=== PATIENT | female | born 1950 | race Caucasian/White ===

== ENCOUNTER → 2017-08-26 | Outpatient (CLI) | payer MEDICARE, OTHER ==
--- NOTE | 2017-08-26 13:16 | CONS ---
CONSULTATION DATE OF SERVICE: 08/26/2017. This 66-year-old lady has been re-evaluated in sleep center for obstructive sleep apnea- hypopnea syndrome. HISTORY OF PRESENT ILLNESS/SLEEP-WAKE EVALUATION: The patient has long history of obstructive sleep apnea-hypopnea syndrome since about 2009. Presently, she is on treatment with BiPAP and last titration done about 1-1/2 years ago in another institution. Patient has difficulties with the machine related to the pressure where she feels the pressure is too high. She also has some problem with the masks. She sometimes snore with the machine, wakes up from sleep 3 times with episodes of nocturia. In the morning she wakes up tired, has problems with memory, concentration. [place] Sleepiness Scale is 10. PAST MEDICAL HISTORY: Positive for hypertension, atrial fibrillation, acid reflux, asthma, recently was diagnosed with myasthenia gravis, history of Sjogren syndrome, history of fibromyalgia and also history of glaucoma. PAST SURGICAL HISTORY: Cardiac ablation, D&C, tonsillectomy and adenoidectomy in childhood, bariatric surgery in 2007, ear surgery. MEDICATIONS: Lisinopril, metformin, Cymbalta, Adderall, gabapentin, trazodone, omeprazole, Singulair, Flovent, metoprolol, Timoptic eye drops, latanoprost. SOCIAL HISTORY: Negative for smoking. Alcohol consumption very rarely. FAMILY HISTORY: Hypertension, angina, heart problems, hyperlipidemia, arthritis, asthma, sinus headaches, emphysema, bronchitis, snoring, tuberculosis, cancer, thyroid problems, diabetes, acid reflux. REVIEW OF SYMPTOMS: Awakenings from sleep, sleepiness during the day, tiredness, muscle weakness during. No fevers. No double vision. No recent chest pain. No shortness of breath. No abdominal pain. No bleeding episodes. No blood in urine. No seizure episodes. PHYSICAL EXAM: During physical exam, a lady without distress. VITAL SIGNS: BP 130/70, HR 76, RR 16, height 5 feet 4-1/2 inches, weight 242, BMI 40.8, temperature 97.8, oxygen saturation in room air 98%. HEENT: PERRLA, EOMI. Oropharynx short distance between soft palate and posterior pharyngeal wall. Some restriction of nasal breathing. Wide neck 16 inches in circumference. NECK: Supple, no JVD. Thyroid is not palpable. LUNGS: Clear to percussion and to auscultation. Good air exchange. No wheezing or rhonchi. HEART: S1, S2 regular. No murmurs, gallops, or rubs. ABDOMEN: Obese. EXTREMITIES: No clubbing or cyanosis. MANAGER: Awake, alert, and oriented X3. Cranial nerves 2 to 7 intact. There is no fasciculation or atrophy. noted. No focal deficits observed. IMPRESSION: 1. Obstructive sleep apnea-hypopnea syndrome for about 18 years, presently on treatment with BiPAP, but wakes up from sleep, snores and feels sleepy during the day. 2. Obesity. 3. Diabetes mellitus. 4. Hypertension. 5. History of atrial fibrillation. 6. Asthma. 7. Acid reflux. 8. Status post cardiac ablation. 9. History of Sjogren syndrome. 10.History of fibromyalgia. 11.Recently diagnosed with myasthenia gravis. 12.Status post D&C. 13.Status post tonsillectomy and adenoidectomy. 14.Glaucoma. PLAN: 1. BiPAP titration for re-evaluation of effective BiPAP pressure at the present time and to find a comfortable mask for the patient. 2. Aggressive losing weight. 3. Sleep hygiene with regular time in bed for at least 8 hours. 4. No driving if feeling any sleepiness. Thank you very much for allowing me to participate in management of your patient. Sincerely, Mukund Washburn MD, PhD, FAASM Diplomat of [employer] Board of [employer] Medicine Christian Science Practitioner of [facility] [place] MMODL / IJN: [id number] /
== END | disposition home or self-care (01) ==
LOC: SLEEP 11:31
PROVIDERS: ATTEND Internal Medicine
DX: G47.33 Obstructive sleep apnea (adult) (pediatric) (principal); E66.9 Obesity, unspecified; E11.9 Type 2 diabetes mellitus without complications; I10 Essential (primary) hypertension; J45.909 Unspecified asthma, uncomplicated; K21.9 Gastro-esophageal reflux disease without esophagitis; G70.00 Myasthenia gravis without (acute) exacerbation; H40.9 Unspecified glaucoma; Z98.84 Bariatric surgery status; Z98.890 Other specified postprocedural states; Z79.899 Other long term (current) drug therapy
CPT/HCPCS: 99201

== ENCOUNTER → 2017-11-25 | Outpatient (CLI) | payer MEDICARE ==
--- NOTE | 2017-11-25 17:54 | PN ---
PROGRESS NOTE DATE OF SERVICE: 11/25/2017 This patient is a 67-year-old lady who has been followed in the sleep center for treatment of obstructive sleep apnea-hypopnea syndrome. Recently the patient had CPAP titration and I explained the results of the test to the patient in detail. Test showed that on the pressure of 12/8, apnea-hypopnea index was 0.9. At the pressure of 13/9 it was zero, and at the pressure of 11/7 it was 8.3, but the patient was at that pressure for a short period of time. At the pressure of 10/6, AHI was 1.7. The patient is using equipment every night for the whole night but experiencing dryness in her mouth when she is using her equipment. But that dryness, patient reports, she has had for many years. The patient still feels sleepy during the day while using her machine, although [place] Sleepiness Scale is in normal range at 6. I checked the BiPAP unit. At pressure 13/9 cm of water, usage is 15/30 nights for more than 4 hours. Average usage is 6.3 hours. Leak is only 2 L/minute. Apnea-hypopnea index for the last month according to the machine is 6.1, total apnea index 5.1, central apnea index 0.9. MEDICATIONS: 1. Lisinopril. 2. Metformin. 3. Cymbalta. 4. Adderall. 5. Gabapentin. 6. Trazodone. 7. Omeprazole. 8. Singulair. 9. Flovent. 10.Metoprolol. 11.Timoptic eye drops. 12.Latanoprost. PHYSICAL EXAMINATION: VITAL SIGNS: BP 141/80, HR 74, RR 16, weight 241, temperature 97.9, oxygen saturation at room air 98%. HEENT: PERRLA, EOMI. Evaluation of oropharynx showed tongue protrudes midline; low position of soft palate. NECK: Supple. No JVD. Thyroid is not palpable. LUNGS: Clear to percussion and to auscultation. Good air exchange. No wheezing or rhonchi. HEART: S1, S2 regular. No murmurs, gallops or rubs. ABDOMEN: Obese. EXTREMITIES : No clubbing or cyanosis. Some weakness of the legs. SEAMLESS TUBE DRAWER: Awake, alert, and oriented X3. Cranial nerves 2 to 7 intact. There is no fasciculation or atrophy. noted. No focal deficits observed. IMPRESSION: 1. Obstructive sleep apnea-hypopnea syndrome; breathing practically normalized on BiPAP at the pressure 13/9 cm of water, but patient still sometimes has episodes of sleepiness and dryness in the mouth. 2. Severe periodic limb movements have been documented during titration. Patient is on treatment with gabapentin at present. 3. Obesity. 4. Asthma. 5. History of atrial fibrillation. 6. Hypertension. 7. Diabetes mellitus. 8. Acid reflux. 9. Status post cardiac ablation. 10.History of Sjogren syndrome. 11.History of fibromyalgia. 12.Myasthenia gravis. 13.Status post dilation and curettage. 14.Status post tonsillectomy and adenoidectomy. 15.Glaucoma. PLAN: 1. I changed the BiPAP to automatic regimen with continued pressure support of 4 and changed minimum expiratory pressure to 7 and maximal inspiratory pressure to 15. 2. Continue to use BiPAP equipment every night. 3. Losing weight. 4. Sleep hygiene with regular time in bed for at least 8 hours. 5. No driving if feeling any sleepiness. Follow-up visit in 3 months. Thank you very much for allowing me to participate in the management of your patient. Sincerely, Mukund Washburn MD, PhD, FAASM Diplomat of [employer] [employer] Board of Internal Medicine Gas Pit Worker of [facility] [place] SIA / TOLU: [id number] /
== END | disposition home or self-care (01) ==
LOC: SLEEP 16:28
PROVIDERS: ATTEND Internal Medicine
DX: G47.33 Obstructive sleep apnea (adult) (pediatric) (principal); E66.9 Obesity, unspecified; J45.909 Unspecified asthma, uncomplicated; I10 Essential (primary) hypertension; E11.9 Type 2 diabetes mellitus without complications; K21.9 Gastro-esophageal reflux disease without esophagitis; Z98.890 Other specified postprocedural states; Z86.2 Personal history of diseases of the blood and blood-forming organs and certain disorders involving the immune mechanism; Z87.39 Personal history of other diseases of the musculoskeletal system and connective tissue; G70.00 Myasthenia gravis without (acute) exacerbation; H40.9 Unspecified glaucoma; Z99.89 Dependence on other enabling machines and devices; Z79.899 Other long term (current) drug therapy; Z79.84 Long term (current) use of oral hypoglycemic drugs; Z86.79 Personal history of other diseases of the circulatory system

== ENCOUNTER → 2018-08-03 | Outpatient (CLI) | payer MEDICARE, OTHER ==
--- NOTE | 2018-08-03 16:41 | PN ---
PROGRESS NOTE DATE OF SERVICE: 08/03/2018 67-year-old lady has been followed in the Sleep Center for treatment of obstructive sleep apnea-hypopnea syndrome. Last time I saw patient about 8 months ago, the patient continued to use her BiPAP equipment every night for the whole night. I did change her pressure up during the last visit and for the first seven months patient was fine, but for the last month, she feels that she has more awakenings during the sleep than before. She feels that maybe pressure should be increased more. [place] Sleepiness Scale today is 8. I checked patient's CPAP unit. BiPAP machine with a minimal expiratory pressure is 7 and maximal inspiratory pressure 15 with a pressure support of 4, most of the time pressure in the range 14.5/10.5. Usage is now 26 out of 30 nights more than 4 hours, average usage is 7.7 hours, which is good compliance. Leak only 5 L/minutes which is perfect. Apnea-hypopnea index for the last month 4.6, and for the last night 3.2. For the last 6 months slightly better 3.8, compared with 1 months. Patient increased her weight around 10 pounds since previous visit. MEDICATIONS: Mestinon, lisinopril, metformin, Cymbalta, gabapentin, trazodone, omeprazole, Singulair, Flovent, metoprolol, Timoptic eye drops, latanoprost. PHYSICAL EXAM: Patient in no distress. BP 157/88, HR 65, RR 17, height 64, weight 251.8, body mass index 43, temperature 97.0, oxygen saturation at room air 99%. Oropharynx: Low position of soft palate. ABDOMEN: Obese. NECK: Supple, no JVD. Thyroid is not palpable. LUNGS: Clear to percussion and to auscultation. Good air exchange. No wheezing or rhonchi. HEART S1, S2 regular. No murmurs, gallops, or rubs. ABDOMEN: Obese. Soft and nontender. Bowel sounds are present. No organomegaly appreciated. EXTREMITIES No clubbing or cyanosis. TIRE INSPECTOR Awake, alert, and oriented X3. Cranial nerves 2 to 7 intact. There is no fasciculation or atrophy. noted. No focal deficits observed. IMPRESSION: 1. Obstructive sleep apnea-hypopnea syndrome. Good compliance with treatment. Benefitting from treatment. 2. Obesity patient increased weight on 10 pounds. 3. Asthma. 4. History of atrial fibrillation. 5. Hypertension. 6. Diabetes mellitus. 7. Acid reflux. 8. Status post cardiac ablation. 9. History of Sjogren's syndrome. 10.History of fibromyalgia. 11.Myasthenia gravis. 12.Status post D and C. 13.Status post tonsillectomy and adenoidectomy. 14.Glaucoma. PLAN: 1. I increased range home of the pressure to the maximal inspiratory pressure of 17 with a pressure support of 4 and minimal respiratory pressure working the same as 7. 2. Losing weight. 3. Sleep hygiene with regular time in bed for at least 8 hours. 4. No driving if feeling sleepiness. 5. Prescription for all necessary BiPAP supplies including mask, tube, filters. Thank you very much for allowing me to participate in management of your patient. MMRONL / IJN: [id number] /
== END | disposition home or self-care (01) ==
LOC: SLEEP 13:06
PROVIDERS: ATTEND Internal Medicine
DX: G47.33 Obstructive sleep apnea (adult) (pediatric) (principal); E66.9 Obesity, unspecified; J45.909 Unspecified asthma, uncomplicated; I10 Essential (primary) hypertension; E11.9 Type 2 diabetes mellitus without complications; K21.9 Gastro-esophageal reflux disease without esophagitis; G70.00 Myasthenia gravis without (acute) exacerbation; H40.9 Unspecified glaucoma; Z68.41 Body mass index [BMI] 40.0-44.9, adult; Z86.79 Personal history of other diseases of the circulatory system; Z87.39 Personal history of other diseases of the musculoskeletal system and connective tissue; Z86.2 Personal history of diseases of the blood and blood-forming organs and certain disorders involving the immune mechanism; Z79.899 Other long term (current) drug therapy; Z99.89 Dependence on other enabling machines and devices; Z90.89 Acquired absence of other organs; Z98.890 Other specified postprocedural states

== ENCOUNTER → 2019-01-26 | Outpatient (CLI) | payer MEDICARE, OTHER ==
--- NOTE | 2019-01-26 14:28 | PN ---
PROGRESS NOTE DATE OF SERVICE: 01/26/2019 A 68-year-old lady who has been followed in the Sleep Center for treatment of obstructive sleep apnea-hypopnea syndrome. Patient continued to use her BiPAP equipment every night without significant problems. Sometimes she feels that pressure is not enough. [place] Sleepiness Scale is 9. I checked her BiPAP unit, maximal respiratory pressure 17, minimal expiratory pressure 7.0, pressure support is 4. Usage is 25/30 nights and 21/30 nights more than 4 hours, average 5.8 hours, average pressure 14.2/10.2. Leak is 7 L/minute which is normal range. Apnea-hypopnea index 4.5, which is normal. MEDICATIONS: Mestinon, lisinopril, metformin, Cymbalta, gabapentin, trazodone, omeprazole, Singulair, Flovent, metoprolol, Timoptic eyedrops, latanoprost. PHYSICAL EXAM: Patient in no distress. BP 123/75, HR 64, RR 16, height 5 foot 4 inches, weight 232 pounds. Body mass index 39.8, temperature 97.6, O2 saturation at room air 98%. OROPHARYNX: Low position of soft palate. ABDOMEN: Obese. Neck Supple, no JVD. Thyroid is not palpable. LUNGS Clear to percussion and to auscultation. Good air exchange. No wheezing or rhonchi. HEART S1, S2 regular. No murmurs, gallops, or rubs. EXTREMITIES No clubbing or cyanosis. DISK RECORDIST Awake, alert, and oriented X3. Cranial nerves 2 to 7 intact. There is no fasciculation or atrophy. noted. No focal deficits observed. IMPRESSION: 1. Obstructive sleep apnea-hypopnea syndrome. Patient demonstrated good compliance with treatment, benefitting from treatment. 2. Obesity. 3. Asthma. 4. History of atrial fibrillation. 5. Hypertension. 6. Diabetes mellitus. 7. Acid reflux. 8. Status post cardiac ablation. 9. History of Sjogren syndrome. 10.History of fibromyalgia. 11.Myasthenia gravis. 12.Status post D and C. 13.Status post tonsillectomy and adenoidectomy. 14.History of glaucoma. PLAN: 1. Patient will continue to use BiPAP equipment every night. 2. Continue losing weight. Patient lost 12 pounds since previous visit. 3. Sleep hygiene with regular time in bed for at least 8 hours. 4. No driving if feeling any sleepiness. Thank you very much for allowing me to participate in the management of your patient. Sincerely, Mukund Washburn MD, PhD, FAASM Diplomat of [place] [employer] Specialties [employer] Board of Internal Medicine Retail Mortgage Banker of [facility] [place] MMODL / HEIDIN: [id number] /
== END | disposition home or self-care (01) ==
LOC: SLEEP 13:09
PROVIDERS: ATTEND Internal Medicine
DX: G47.33 Obstructive sleep apnea (adult) (pediatric) (principal); E66.9 Obesity, unspecified; J45.909 Unspecified asthma, uncomplicated; I48.91 Unspecified atrial fibrillation; I10 Essential (primary) hypertension; E11.9 Type 2 diabetes mellitus without complications; K21.9 Gastro-esophageal reflux disease without esophagitis; M79.7 Fibromyalgia; G70.00 Myasthenia gravis without (acute) exacerbation; M35.00 Sjogren syndrome, unspecified; H40.9 Unspecified glaucoma; Z90.89 Acquired absence of other organs; Z98.890 Other specified postprocedural states; Z79.84 Long term (current) use of oral hypoglycemic drugs; Z79.899 Other long term (current) drug therapy; Z79.52 Long term (current) use of systemic steroids; Z99.89 Dependence on other enabling machines and devices; Z68.39 Body mass index [BMI] 39.0-39.9, adult

== ENCOUNTER 2020-02-20 06:33 | Day surgery (SDC) | payer MEDICARE, OTHER ==
[2020-02-14 15:34] VITALS: BMI 40.0
[~2020-02-20 06:33] MED LIST: SODIUM CHLORIDE 0.9% 1,000 ML IV SCH
[2020-02-20] MEDS ORDERED: CLINDAMYCIN 900 MG in DEXTROSE 5% IN WATER 50 ML IVPB ONE ×2 (07:00)
[2020-02-20 07:03] VITALS: RESP 16; TEMP 97.7
[2020-02-20] MEDS ORDERED: LIDOCAINE 1% INJ 10MG/ML (20 ML MDV) ONE (07:20)
[2020-02-20 08:01] VITALS: BP 142/77; PULSE 63
[2020-02-20] MEDS ORDERED: LIDOCAINE 1% INJ 10MG/ML (20 ML MDV) SQ ONE (08:01)
--- NOTE | 2020-02-20 08:26 | P.PCN ---
Preoperative Diagnosis: Loop monitor implant Primary physicians: Winston Dowling Battery Stacker: Dr. Arambula Indication: Recurrent palpitations with presyncope Patient was brought to the EP lab in a fasting state. Written informed consent was obtained prior to the procedure. The left pectoral area was prepped and draped per protocol. Intravenous antibiotic was administered preoperatively. A subcutaneous Loop monitor was implanted successfully and the wound was closed per protocol. The device was programmed to detect significant minal- arrhythmic and tachy-arrhythmic events, per protocol. Device and programming details: Syncope and palpitation protocol Patient underwent EP procedure under conscious sedation/moderate sedation, monitoring of the level of consciousness and physiologic parameters including but not limited to vital signs and oxygenation. Patient tolerated the procedure well without any acute complications. Start time: 8 AM Stop time: 811am
--- NOTE | 2020-02-20 11:03 | P.PRLE ---
RE: Xochitl Callahan Dear Dr. 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 Arambula There are no changes in her medications for now Thank you for entrusting me with the care of the patient Warm regards Sincerely Alexandru Wallace
== END 2020-02-20 08:47 | disposition home or self-care (01) ==
LOC: CATHEP 06:33
PROVIDERS: ATTEND Internal Medicine Clinical Cardiac Electrophysiology
DX: R00.2 Palpitations (principal); R55 Syncope and collapse; R42 Dizziness and giddiness; I49.9 Cardiac arrhythmia, unspecified; G47.33 Obstructive sleep apnea (adult) (pediatric); E11.9 Type 2 diabetes mellitus without complications; I10 Essential (primary) hypertension; I49.3 Ventricular premature depolarization; I47.1 Supraventricular tachycardia; Z98.890 Other specified postprocedural states; Z99.89 Dependence on other enabling machines and devices; Z79.899 Other long term (current) drug therapy; Z79.84 Long term (current) use of oral hypoglycemic drugs; Z79.51 Long term (current) use of inhaled steroids; Z91.09 Other allergy status, other than to drugs and biological substances; Z88.5 Allergy status to narcotic agent; Z88.0 Allergy status to penicillin; Z82.49 Family history of ischemic heart disease and other diseases of the circulatory system
CPT/HCPCS: 33285; C1764

== ENCOUNTER → 2020-10-09 | Outpatient (CLI) | payer MEDICARE ==
--- NOTE | 2020-10-09 21:52 | SFUN ---
SLEEP CENTER FOLLOW UP NOTE DATE OF SERVICE: 10/09/2020 This patient is a 69-year-old lady who has been followed in Sleep Center for treatment of obstructive sleep apnea-hypopnea syndrome. The patient continues to use CPAP equipment every night. Sometimes when she wakes up in the second part of the night after 5 or 6 hours of sleep, she feels that the pressure is high and she cannot start to use her machine again after awakenings and going to the restroom. [place] Sleepiness Scale today is 11. I checked her BiPAP unit. Minimal expiratory pressure is 7 and maximal inspiratory pressure is 17 with a pressure support of 4. The patient is using equipment 20/30 nights for more than 4 hours with average usage 6.5 hours per night. Leak is 16 L/minute, which is borderline. Apnea-hypopnea index is 3.2, which is totally normal. RAMP is 30 minutes, starting at 4 cm of water. MEDICATIONS: 1. Metoprolol 25 mg twice a day. 2. Ritalin 20 mg once a day. 3. Hydrochlorothiazide 25 mg twice a day. 4. Lisinopril 30 mg once a day. 5. Mestinon 60 mg twice a day. 6. Gabapentin 300 mg twice a day. 7. Amlodipine once a day. 8. Omeprazole 20 mg twice a day. 9. Trazodone 50 mg at bedtime. 10.Timoptic eyedrops. 11.Flovent. PHYSICAL EXAMINATION: GENERAL: A pleasant patient in no distress. VITAL SIGNS: BP 158/91, HR 65, RR 18, height 5 feet 5 inches, weight 254.6, temperature 96.3, oxygen saturation at room air 98%. HEENT: PERRLA, EOMI. Evaluation of oropharynx showed tongue protrudes midline. Low position of soft palate. NECK: Supple. No JVD. Thyroid is not palpable. LUNGS: Clear to percussion and to auscultation. Good air exchange. No wheezing or rhonchi. HEART: S1, S2 irregular. No murmurs, gallops or rubs. ABDOMEN: Obese. EXTREMITIES: No clubbing or cyanosis. RADIO STATION ENGINEER: Awake, alert, and oriented X3. Cranial nerves 2 to 7 intact. There is no fasciculation or atrophy. noted. No focal deficits observed. IMPRESSION: 1. Obstructive sleep apnea-hypopnea syndrome. Patient demonstrated good compliance with treatment, benefitting from treatment. 2. Obesity. 3. Asthma. 4. Atrial fibrillation. 5. Hypertension. 6. Diabetes mellitus. 7. Acid reflux. 8. Status post cardiac ablation. 9. History of Sjogren syndrome. 10.History of fibromyalgia. 11.Myasthenia gravis. 12.Status post dilatation and curettage. 13.Status post tonsillectomy and adenoidectomy. 14.History of glaucoma. PLAN: 1. Patient will continue to use PAP equipment every night for the whole night. 2. Sleep hygiene with regular time in bed for at least 7-1/2 to 8 hours. 3. Precautions related to driving. No driving if feeling sleepiness. 4. I will maintain all necessary prescription for PAP supplies including mask, tube, filters. 5. Watching weight. 6. No driving if feeling sleepiness. 7. Follow-up visit in 6 months or earlier if patient has any problems. 8. I changed minimal expiratory pressure to 5. At the end of the night, when the patient wakes up and has difficulties starting the machine again, she should restart machine, and RAMP will restart, and she will not have difficulties using the machine again. I explained this in detail to the patient. Thank you very much for allowing me to participate in the management of your patient. Sincerely, Mukund Washburn MD, PhD, FAASM Diplomat of [place] [employer] Specialties [place] Board of Internal Medicine Insurance Marketing Specialist of [facility] [place] MMODL / TOLU: [id number] /
== END | disposition home or self-care (01) ==
LOC: SLEEP 16:00
PROVIDERS: ATTEND Internal Medicine
DX: G47.33 Obstructive sleep apnea (adult) (pediatric) (principal); E66.9 Obesity, unspecified; J45.909 Unspecified asthma, uncomplicated; I48.91 Unspecified atrial fibrillation; I10 Essential (primary) hypertension; G70.00 Myasthenia gravis without (acute) exacerbation; E11.9 Type 2 diabetes mellitus without complications; K21.9 Gastro-esophageal reflux disease without esophagitis; Z87.39 Personal history of other diseases of the musculoskeletal system and connective tissue; Z98.890 Other specified postprocedural states; Z99.89 Dependence on other enabling machines and devices; Z79.891 Long term (current) use of opiate analgesic; Z79.899 Other long term (current) drug therapy; Z86.69 Personal history of other diseases of the nervous system and sense organs

== ENCOUNTER → 2021-11-26 | Outpatient (CLI) | payer MEDICARE ==
--- NOTE | 2021-11-26 21:09 | SFUN ---
SLEEP CENTER FOLLOW UP NOTE DATE OF SERVICE: 11/26/2021 71-year-old lady has been followed in Sleep Center for treatment of obstructive sleep apnea-hypopnea syndrome. The patient continues to use her BiPAP equipment every night and still has sleepiness during the day. [place] Sleepiness Scale today increased to 13, and this is with the usage of Provigil 200 mg in the morning. I checked her BiPAP unit. Maximal inspiratory pressure is 17, minimal expiratory respiratory pressure 5, pressure support 4, average pressure 14.6 or 10.7. Usage is 23/30 nights and 20/30 nights more than 4 hours, average 6.4 hours per night. Leak 17 L/minute. Apnea-hypopnea index is 6.3, which is slightly above borderline. MEDICATIONS: Cymbalta 30 mg once a day and 20 mg once a day, montelukast 10 mg once a day, lisinopril 30 mg once a day, hydrochlorothiazide 25 mg once a day, metoprolol 25 mg twice a day, Provigil 200 mg once a day in the morning, Myrbetriq 50 mg once a day, timolol eye drops twice a day, latanoprost eye drops, Ozempic weekly, omeprazole 20 mg once a day. PHYSICAL EXAMINATION: GENERAL: Patient in no distress. BP 133/81, HR 88, RR 16, estimated weight 220. Patient did not want to check her weight and this is 34 pounds less than she had during the previous visit. Temperature 97.0, oxygen saturation at room air 95%. Oropharynx showed low position of soft palate. NECK: Supple, no JVD. Thyroid is not palpable. LUNGS: Clear to percussion and to auscultation. Good air exchange. No wheezing or rhonchi. HEART: S1, S2 regular. No murmurs, gallops, or rubs. ABDOMEN: Obese. Soft and nontender. Bowel sounds are present. No organomegaly appreciated. EXTREMITIES: No clubbing or cyanosis. RHEOSTAT ASSEMBLER: Awake, alert, and oriented X3. Cranial nerves 2 to 7 intact. There is no fasciculation or atrophy. noted. No focal deficits observed. IMPRESSION: 1. Obstructive sleep apnea-hypopnea syndrome. Patient demonstrated acceptable compliance with treatment benefitting from treatment. Very minimal increasing apnea-hypopnea index to 6.3 at the present time. 2. Sleepiness during the day. [place] Sleepiness Scale increased to 13 and that with usage of Provigil 200 mg in the morning. 3. Obesity. Patient lost about 30 pounds since previous visit. 4. Asthma. 5. History of atrial fibrillation. 6. Hypertension. 7. Diabetes mellitus. 8. Acid reflux. 9. Status post cardiac ablation. 10.History of Sjogren syndrome. 11.History of fibromyalgia. 12.Myasthenia gravis. 13.Status post D and C. 14.Status post tonsillectomy and adenoidectomy. 15.History of glaucoma. PLAN: 1. I increased maximal inspiratory pressure to 18 cm of water. 2. I increased humidity to 6. The patient feels dryness in the mouth. 3. We will schedule multiple sleep latency test for objective evaluation of patient's symptoms of excessive daytime sleepiness. The patient should not take Provigil at the time before the test and the day of the test and the patient will be on treatment with CPAP all night and including night before the MSLT. 4. Watching and losing weight. 5. No driving if feeling sleepiness. 6. Prescription for all necessary CPAP supplies have been signed. 7. I will see patient for follow-up visit after MSLT will be done to discuss results of the test and following plan. Thank you very much for allowing me to participate in management of your patient. Sincerely, Mukund Washburn MD, PhD, FAASM Diplomat of [place] [employer] Sleep Medicine Board of [place] [employer] of Internal Medicine Intern Retail of [facility] [place] MMODL / IJN: [id number] /
== END ==
LOC: SLEEP 15:22
PROVIDERS: ATTEND Internal Medicine
DX: G47.33 Obstructive sleep apnea (adult) (pediatric) (principal); E66.9 Obesity, unspecified; J45.909 Unspecified asthma, uncomplicated; I48.91 Unspecified atrial fibrillation; I10 Essential (primary) hypertension; E11.9 Type 2 diabetes mellitus without complications; K21.9 Gastro-esophageal reflux disease without esophagitis; Z98.890 Other specified postprocedural states; Z87.39 Personal history of other diseases of the musculoskeletal system and connective tissue; G70.00 Myasthenia gravis without (acute) exacerbation; Z87.59 Personal history of other complications of pregnancy, childbirth and the puerperium; Z90.09 Acquired absence of other part of head and neck; Z86.69 Personal history of other diseases of the nervous system and sense organs; Z99.89 Dependence on other enabling machines and devices; Z86.2 Personal history of diseases of the blood and blood-forming organs and certain disorders involving the immune mechanism; Z88.0 Allergy status to penicillin; Z88.5 Allergy status to narcotic agent; Z87.891 Personal history of nicotine dependence

== ENCOUNTER → 2022-09-02 | Outpatient (CLI) | payer MEDICARE ==
--- NOTE | 2022-09-02 12:32 | P.PN ---
Subjective DATE: 09/02/2022 FOLLOW UP VISIT. Patient with obstructive sleep apnea hypopnea syndrome and significant excessive daytime sleepiness return to sleep center for follow-up visit to discuss results of recent CPAP titration test with following multiple sleep latency test and plan for the treatment. I discuss results of sleep studies with patient in details. She respiration was on full control with BiPAP pressure 11/7 cm of water during the test. A multiple sleep latency test confirmed sleepiness. Mean sleep latency was short 6.3 minutes. One sleep onset REM have been documented. Patient is on Ritalin 20 mg twice a day for ADHD and sleepiness. Patient is using BPAP equipment every night for the whole night, getting PAP supplies in time. The patient does not have significant problems with the mask, BPAP unit and humidification. [place] sleepiness scale is increased to 13. I checked information from BPAP unit. BPAP unit pressure maximal inspiratory pressure 18, minimal expiratory pressure 5, pressure-support 4, average pressure 13.7/9.7 cm H2O. Usage is 40 % for more then 4 hours. Leak is 5 l/m, which is in acceptable range. Apnea Hypopnea Index is 4.3, which is normal. MEDICATIONS:1 . Ritalin 20 mg twice a day 2. Cymbalta 3. Hydrochlorothiazide 4. Metoprolol 5. Lisinopril 6. Omeprazole 7. timolol and latanoprost eyedrops 8. Ozempic During physical exam: GENERAL: A pleasant patient without any distress. VITAL SIGNS: BP 138/86, HR 75, RR 16, weight estimated 220, patient refused to measure weight, temperature 97.0, oxygen saturation at room air 98 % . HEENT: PERRLA, EOMI.low position of soft palate, Mallapati 3 . NECK: Supple. No JVD. LUNGS: Clear to percussion and to auscultation. Good air exchange. No wheezing or rhonchi. HEART: S1, S2 regular. ABDOMEN: Soft and nontender.[] EXTREMITIES: No clubbing or cyanosis. GUEST SPECIALIST: Awake, alert, and oriented x3. No focal deficit. Impressions: 1. Obstructive sleep apnea-hypopnea syndrome. Patient demonstrated normal respiration on BiPAP. 2. Significant excessive daytime sleepiness have been confirmed by multiple sleep latency test. Mean sleep latency was short 6.3 minutes, one sleep onset REM periods have been documented. Differential diagnosis include narcolepsy2 and idiopathic hypersomnia. 3. History of ADHD. 4. Obesity. 5. Asthma. 6. Hypertension. 7. History of arterial fibrillation, status post cardiac ablation. 8. Diabetes mellitus. 9. Acid reflux. 10. History of Sjogren syndrome. 11. Myastenia gravis. 12. History of glaucoma. Plan: 1. Continue using BPAP equipment every night for the whole night, patient promised to follow recommendations. 2. Presently patient is on treatment with Ritalin 20 mg twice a day for ADHD, which could be sufficient for treatment of possible narcolepsy. If necessary we'll consider to adjust the dose, change medication, or add additional medication like modafinil. 3. PAP unit should stay lower then position of the head. 4. Advised patient to remove all remaining water from humidifier canister daily and make it dry after each usage. Refill canister with fresh distilled water before each usage. 5. Sleep hygiene with regular time in bed for at least 8 hours. 6. Precautions related to driving. No driving if feel any sleepiness. 7. I will maintain prescription for PAP supplies including mask, tube, filters. 8. Follow up visit in 6 months or earlier if patient has any problems. 9. Watching and losing weight. Thank you very much for allowing me to participate in the management of your patient. Mukund Washburn MD, PhD, FAASM. Diplomat of [place] [employer], Sleep Medicine Board by [employer] [employer] Leather Colorer of [facility] [place]
== END ==
LOC: SLEEP 11:36
PROVIDERS: ATTEND Internal Medicine
DX: G47.33 Obstructive sleep apnea (adult) (pediatric) (principal); Z99.89 Dependence on other enabling machines and devices; E66.9 Obesity, unspecified; J45.909 Unspecified asthma, uncomplicated; I10 Essential (primary) hypertension; Z86.59 Personal history of other mental and behavioral disorders; K21.9 Gastro-esophageal reflux disease without esophagitis; E11.9 Type 2 diabetes mellitus without complications; I97.190 Other postprocedural cardiac functional disturbances following cardiac surgery; M35.00 Sjogren syndrome, unspecified; G70.00 Myasthenia gravis without (acute) exacerbation; Z86.69 Personal history of other diseases of the nervous system and sense organs; Z88.0 Allergy status to penicillin; Z88.5 Allergy status to narcotic agent; Z87.891 Personal history of nicotine dependence
CPT/HCPCS: 99212

== ENCOUNTER → 2023-03-18 | Outpatient (CLI) | payer MEDICARE ==
--- NOTE | 2023-03-18 13:59 | P.PN ---
Subjective DATE: 03/18/2023 FOLLOW UP VISIT. Patient with obstructive sleep apnea hypopnea syndrome and possible narcolepsy return to sleep center for follow-up visit. Information from previous visit have been reviewed. Patient is using PAP equipment every night for the whole night, getting PAP supplies in time. Sometimes wakes up from sleep while using sure BiPAP equipment. The patient does not have significant problems with the mask, PAP unit and humidification. [place] sleepiness scale is 12. I checked information from BPAP unit. BPAP unit pressure maximal inspiratory pressure 18, minimal expiratory pressure 5, average 14.4 over 10.4 cm H2O. Usage is 80 % for more then 4 hours, average 7.4 hours per night. Leak is 12 l/m, which is in acceptable range. Apnea Hypopnea Index is 5.3, which is borderline and includes 2.5 per hour central events. I reviewed results of sleep study in July 2022. During this test with the constant BiPAP pressure 11/7 apnea-hypopnea index was 0. MEDICATIONS:1. Cymbalta 20 mg once a day 2. Lisinopril 2.5 mg once a day 3. Cymbalta 20 mg once a day 4. Ritalin 20 mg once a day 5. Latanoprost eyedrops 6. Metoprolol During physical exam: GENERAL: A pleasant patient without any distress. VITAL SIGNS: BP 110/77, HR 82, RR 16, weight 207, temperature 97.6, oxygen saturation at room air 100 % . HEENT: PERRLA, EOMI.low position of soft palate, Mallapati 3 . NECK: Supple. No JVD. LUNGS: Clear to percussion and to auscultation. Good air exchange. No wheezing or rhonchi. HEART: S1, S2 regular. ABDOMEN: Soft and nontender.[] EXTREMITIES: No clubbing or cyanosis. WHARF TENDER HELPER: Awake, alert, and oriented x3. No focal deficit. I reduced the pressure in BiPAP unit down to 11/7 cm of water constant pressure. Impressions: 1. Obstructive sleep apnea-hypopnea syndrome. Patient demonstrated good compliance with treatment, benefiting from treatment. 2. Possible narcolepsy. Multiple sleep latency showed mean sleep latency was 6.3 minutes with one sleep onset REM.. 3. History of ADHD. 4. Asthma. 5. Hypertension. 6. History of atrial fibrillation status post cardiac ablation. 7. History of Diabetes mellitus. 8. History of mastenia gratis. 9. History of glaucoma. 10. Acid reflux. Plan: 1. Continue using PAP equipment every night for the whole night. 2. To change air filter at least 1-2 times per month. 3. PAP unit should stay lower then position of the head. 4. Advised patient to remove all remaining water from humidifier canister daily and make it dry after each usage. Refill canister with fresh distilled water before each usage. 5. Sleep hygiene with regular time in bed for at least 8 hours. 6. Precautions related to driving. No driving if feel any sleepiness. 7. I will maintain prescription for PAP supplies including mask, tube, filters. 8. Follow up visit in 6 months or earlier if patient has any problems. 9. Watching weight. Thank you very much for allowing me to participate in the management of your patient. Mukund Washburn MD, PhD, FAASM. Diplomat of [place] Medicine, Sleep Medicine Board by [place] Medicine Sweat Band Separator of [facility] [place]
== END ==
LOC: 3 N SLEEP 13:11
PROVIDERS: ATTEND Internal Medicine
DX: G47.33 Obstructive sleep apnea (adult) (pediatric) (principal); E11.9 Type 2 diabetes mellitus without complications; I48.91 Unspecified atrial fibrillation; F90.9 Attention-deficit hyperactivity disorder, unspecified type; I10 Essential (primary) hypertension; J45.909 Unspecified asthma, uncomplicated; K21.9 Gastro-esophageal reflux disease without esophagitis; Z79.899 Other long term (current) drug therapy; Z99.89 Dependence on other enabling machines and devices
CPT/HCPCS: 99212

== ENCOUNTER → 2023-07-21 | Outpatient (CLI) | payer MEDICARE ==
--- NOTE | 2023-07-21 17:32 | P.PN ---
Subjective DATE: 07/21/2023 FOLLOW UP VISIT. Patient with obstructive sleep apnea hypopnea syndrome return to sleep center for follow-up visit. Information from previous visit have been reviewed. Patient is using BPAP equipment every night for the whole night, getting PAP supplies in time. The patient does not have significant problems with the mask, PAP unit and humidification. [place] sleepiness scale is increased to 11. I checked information from [place] PAP unit. BPAP unit pressure 11/7 cm H2O. Usage is 70 % for more then 4 hours, average 8 hours per night. Leak is 7 l/m, which is in acceptable range. Apnea Hypopnea Index is borderline 5.1, during previous visit 5.3. MEDICATIONS:1. Lisinopril 2.5 mg once a day 2. Cymbalta 20 mg once a day 3. Ritalin 20 mg once a day 4. Metoprolol 5. Latanoprost eyedrops During physical exam: GENERAL: A pleasant patient without any distress. VITAL SIGNS: BP 157/98, HR 82, RR 16 , weight 194, temperature 97.3, oxygen saturation at room air 98 % . HEENT: PERRLA, EOMI.low position of soft palate, Mallapati 3 . NECK: Supple. No JVD. LUNGS: Clear to percussion and to auscultation. Good air exchange. No wheezing or rhonchi. HEART: S1, S2 regular. ABDOMEN: Soft and nontender.[] EXTREMITIES: No clubbing or cyanosis. TRAILER PARK MANAGER: Awake, alert, and oriented x3. No focal deficit. Impressions: 1. Obstructive sleep apnea-hypopnea syndrome. Patient demonstrated good compliance with treatment, benefiting from treatment. 2. Possible narcolepsy. MSLT short mean sleep latency 6.3 minutes with one sleep onset REM. 3. Hypertension. 4. History of ADHD. 5. Asthma. 6. History of atrial fibrillation, status post cardiac ablation. 7. History of diabetes mellitus. 8. History of myastenia gravis. 9. History of glaucoma. 10. Acid reflux. 11. Mild obesity, BMI 33.8, patient lost 13 pounds since previous visit. I increased BPAP pressure to 13/9 cm of water. Plan: 1. Continue using PAP equipment every night for the whole night. 2. To change air filter at least 1-2 times per month. 3. PAP unit should stay lower then position of the head. 4. Advised patient to remove all remaining water from humidifier canister daily and make it dry after each usage. Refill canister with fresh distilled water before each usage. 5. Sleep hygiene with regular time in bed for at least 8 hours. 6. Precautions related to driving. No driving if feel any sleepiness. 7. I will maintain prescription for PAP supplies including mask, tube, filters. 8. Watching weight. 9. Follow up visit in 6 months or earlier if patient has any problems. Thank you very much for allowing me to participate in the management of your patient. Mukund Washburn MD, PhD, FAASM. Diplomat of [place] [employer] Medicine, Sleep Medicine Board by [place] [employer] Medicine Watch Engine Operator of [facility] [place]
== END ==
LOC: 3 N SLEEP 14:04
PROVIDERS: ATTEND Internal Medicine
DX: G47.33 Obstructive sleep apnea (adult) (pediatric) (principal); I10 Essential (primary) hypertension; F90.9 Attention-deficit hyperactivity disorder, unspecified type; J45.909 Unspecified asthma, uncomplicated; I48.91 Unspecified atrial fibrillation; E11.9 Type 2 diabetes mellitus without complications; K21.9 Gastro-esophageal reflux disease without esophagitis; E66.9 Obesity, unspecified; Z87.39 Personal history of other diseases of the musculoskeletal system and connective tissue; Z86.69 Personal history of other diseases of the nervous system and sense organs; Z99.89 Dependence on other enabling machines and devices; Z68.33 Body mass index [BMI] 33.0-33.9, adult; Z98.890 Other specified postprocedural states; Z79.899 Other long term (current) drug therapy; Z88.0 Allergy status to penicillin; Z88.5 Allergy status to narcotic agent; Z87.891 Personal history of nicotine dependence
CPT/HCPCS: 99212

== ENCOUNTER → 2023-09-16 | Outpatient (CLI) | payer MEDICARE ==
--- NOTE | 2023-09-16 17:25 | P.PN ---
Subjective DATE: 09/16/2023 FOLLOW UP VISIT. Patient with obstructive sleep apnea hypopnea syndrome return to sleep center for follow-up visit. Information from previous visit have been reviewed. Patient is using PAP equipment every night for the whole night, getting PAP supplies in time. The patient does not have significant problems with the mask, PAP unit and humidification. [place] sleepiness scale is 10, which is slightly increased. I checked information from PAP unit. PAP unit pressure 13/9 cm H2O. Usage is 90 % for more then 4 hours, average 6.9 hours per night. Leak is 10 l/m, which is in acceptable range. Apnea Hypopnea Index is 5.2, which is normal. MEDICATIONS:1. Lisinopril 30 mg once a day 2. Gabapentin 100 mg once a day 3. Aspirin 81 mg once a day 4. Retalin 5 mg once a day 5. Metoprolol 25 mg twice a day 6. Latanoprost eyedrops During physical exam: GENERAL: A pleasant patient without any distress. VITAL SIGNS: BP 139/90, HR 74, RR 16 , weight 188.8, temperature 97.5, oxygen saturation at room air 99 % . HEENT: PERRLA, EOMI.low position of soft palate, Mallapati 3 . NECK: Supple. No JVD. LUNGS: Clear to percussion and to auscultation. Good air exchange. No wheezing or rhonchi. HEART: S1, S2 regular. ABDOMEN: Soft and nontender.[] EXTREMITIES: No clubbing or cyanosis. SYSTEM MANAGER: Awake, alert, and oriented x3. No focal deficit. Impressions: 1. Obstructive sleep apnea-hypopnea syndrome. Patient demonstrated great compliance with treatment, benefiting from treatment. 2. Possible narcolepsy. Mean sleep latency on M SLT 6.3 minutes with one sleep onset REM . 3. History of ADHD. 4. Hypertension. 5. Asthma. 6. History of atrial fibrillation, status post cardiac ablation. 7. History of diabetes mellitus. 8. History of mastodynia gravis. 9. History of glaucoma. 10. Acid reflux. Plan: 1. Continue using PAP equipment every night for the whole night. 2. To change air filter at least 1-2 times per month. 3. PAP unit should stay lower then position of the head. 4. Advised patient to remove all remaining water from humidifier canister daily and make it dry after each usage. Refill canister with fresh distilled water before each usage. 5. Sleep hygiene with regular time in bed for at least 8 hours. 6. Precautions related to driving. No driving if feel any sleepiness. 7. I will maintain prescription for PAP supplies including mask, tube, filters. 8. Follow up visit in 6 months or earlier if patient has any problems. 9. Watching weight. Thank you very much for allowing me to participate in the management of your patient. Mukund Washburn MD, PhD, FAASM. Diplomat of [place] Board of Sleep Medicine, Sleep Medicine Board by [employer] Board of [employer] Medicine Recycling Tech of [facility] [place]
== END ==
LOC: 3 N SLEEP 13:56
PROVIDERS: ATTEND Internal Medicine
DX: G47.33 Obstructive sleep apnea (adult) (pediatric) (principal); I10 Essential (primary) hypertension; E11.9 Type 2 diabetes mellitus without complications; I48.91 Unspecified atrial fibrillation; J45.909 Unspecified asthma, uncomplicated; H40.9 Unspecified glaucoma; F90.9 Attention-deficit hyperactivity disorder, unspecified type; K21.9 Gastro-esophageal reflux disease without esophagitis; Z79.899 Other long term (current) drug therapy; Z79.82 Long term (current) use of aspirin; Z87.39 Personal history of other diseases of the musculoskeletal system and connective tissue; Z99.89 Dependence on other enabling machines and devices; Z98.890 Other specified postprocedural states; Z88.0 Allergy status to penicillin; Z88.5 Allergy status to narcotic agent; Z79.51 Long term (current) use of inhaled steroids; Z87.891 Personal history of nicotine dependence
CPT/HCPCS: 99212

== ENCOUNTER → 2024-04-13 | Outpatient (CLI) | payer MEDICARE ==
[2024-04-13 13:26] VITALS: BP 137/85; PULSE 78; RESP 16; TEMP 98.1
--- NOTE | 2024-04-13 14:29 | P.PROGSL ---
Subjective DATE: 04/13/2024 FOLLOW UP VISIT. Patient with obstructive sleep apnea hypopnea syndrome return to sleep center for follow-up visit. Information from previous visit have been reviewed. Recently patient had evaluation for possibility to start inspire treatment, was not qualified. Sleep study in another institution was negative for obstructive sleep apnea hypopnea syndrome, but it was done after using CPAP on the previous night, which could be the reason for false negative results. Patient is using PAP equipment every night for the whole night, getting PAP supplies in time. The patient does not have significant problems with the mask, PAP unit and humidification. [place] sleepiness scale is slightly increased to 11. I checked information from PAP unit. PAP unit pressure 13/9 cm H2O. Usage is 70% for more then 4 hours, average 7 hours per night. Leak is 13 l/m, which is in acceptable range. Apnea Hypopnea Index is 7.5, which included 1.8 centrals. MEDICATIONS have been reviewed, please see below. During physical exam: GENERAL: A pleasant patient without any distress. VITAL SIGNS: Please see below, weight is 183 lbs. HEENT: PERRLA, EOMI.low position of soft palate, Mallapati 3. NECK: Supple. No JVD. LUNGS: Clear to percussion and to auscultation. Good air exchange. No wheezing or rhonchi. HEART: S1, S2 regular. ABDOMEN: Soft and nontender.[] EXTREMITIES: No clubbing or cyanosis. JIGGER ARTISAN: Awake, alert, and oriented x3. No focal deficit. Impressions: 1. Obstructive sleep apnea-hypopnea syndrome. Patient demonstrated good compliance with treatment, benefiting from treatment. Apnea hypopnea index reading from the machine increased to 7.5, including 1.8 centrals. 2. Possible narcolepsy. Mean sleep latency on MSLT 6.3 minutes with 1 sleep onset REM.. 3. History of ADHD. 4. Hypertension. 5. Asthma. 6. History of atrial fibrillation, status post cardiac ablation. 7. History of diabetes mellitus. 8. History of myasthenia gravis. 9. History of glaucoma. 10. Acid reflux. I changed regimen of BiPAP unit to out of BiPAP with maximal inspiratory pressure 15 and minimal expiratory pressure 6 cm of water, because apnea- hypopnea index was increased to 7.5 from CPAP unit reading. Plan: 1. Continue using PAP equipment every night for the whole night. 2. Sleep hygiene with regular time in bed for at least 7.5-8 hours 3. PAP unit should stay lower then position of the head. 4. Advised patient to remove all remaining water from humidifier canister daily and make it dry after each usage. Refill canister with fresh distilled water before each usage. 5. Watching weight. 6. Precautions related to driving. No driving if feel any sleepiness. 7. I will maintain prescription for PAP supplies including mask, tube, filters. 8. Follow up visit in 6 months or earlier if patient has any problems. Thank you very much for allowing me to participate in the management of your patient. Mukund Washburn MD, PhD, FAASM. Diplomat of [place] Board [employer] Sleep Medicine, Sleep Medicine Board by [employer] Board of Internal Medicine Cornice Upholsterer of [facility] [place] Objective - Vital Signs Vital Signs: Vital Signs Temp 98.1 F 04/13/24 13:25 Pulse 78 04/13/24 13:25 Resp 16 04/13/24 13:25 BP 137/85 04/13/24 13:25 Pulse Ox 97 04/13/24 13:25 FiO2 Intake & Output 04/12/24 04/13/24 04/13/24 18:59 06:59 18:59 Weight 83.007 kg Home Medications: Home Medications Medication Instructions Recorded Confirmed Type DULoxetine HCL [Cymbalta] 30 mg PO BID 02/14/20 04/13/24 History Fluticasone Nasal [place] [Flonase 2 spr EA NOSTRIL DAILY 02/14/20 04/13/24 History Nasal [place]] Fluticasone Propionate 220 Mcg 1 puff INHALATION QID PRN 02/14/20 02/14/20 History [Flovent 220 Mcg Inhaler] Gabapentin [Neurontin] 300 mg PO BID 02/14/20 02/20/20 History Hydroxychloroquine Sulfate 200 mg PO BID 02/14/20 02/20/20 History [Plaquenil] Latanoprost/Pf [Latanoprost 0.005% 1 drop BOTH EYES HS 02/14/20 04/13/24 History Eye Drop] Methylphenidate HCl [Ritalin] 10 mg PO DAILY 02/14/20 02/20/20 History Metoprolol Tartrate 25 mg PO BID 02/14/20 04/13/24 History Mirabegron [Myrbetriq] 50 mg PO DAILY 02/14/20 04/13/24 History Montelukast [Singulair] 10 mg PO DAILY 02/14/20 04/13/24 History Pyridostigmine [place] [Mestinon] 60 mg PO BID 02/14/20 02/20/20 History Timolol [Betimol 0.5% Ophth Soln] 1 drop BOTH EYES HS 02/14/20 02/20/20 History hydroCHLOROthiazide 25 mg PO DAILY 02/14/20 04/13/24 History lisinopriL 30 mg PO DAILY 02/14/20 04/13/24 History traZODone HCL 50 mg PO HS PRN 02/14/20 02/20/20 History Aspirin [Adult Low Dose Aspirin EC] 81 mg PO DAILY 04/13/24 04/13/24 History Brimonidine Tartrate/Timolol 5 ml BOTH EYES BID 04/13/24 04/13/24 History [Combigan 0.2%-0.5% Eye Drops] Methylphenidate HCl [Ritalin] 5 mg PO DAILY 04/13/24 04/13/24 History Methylphenidate HCl [Ritalin] 20 mg PO DAILY 04/13/24 04/13/24 History
== END ==
LOC: 3 N SLEEP 13:10
PROVIDERS: ATTEND Internal Medicine
CPT/HCPCS: 99212

== ENCOUNTER → 2024-11-23 | Outpatient (CLI) | payer MEDICARE ==
[2024-11-23 13:56] VITALS: BP 155/97; PULSE 78; RESP 16; TEMP 97.4
--- NOTE | 2024-11-23 14:39 | P.PROGSL ---
Subjective DATE: 11/23/2024 FOLLOW UP VISIT. Patient with obstructive sleep apnea hypopnea syndrome return to sleep center for follow-up visit. Information from previous visit have been reviewed. Patient is using PAP equipment every night for the whole night, getting PAP supplies in time. The patient does not have significant problems with the mask, PAP unit and humidification. [place] sleepiness scale is slightly increased to 11. I checked information from PAP unit. BPAP unit pressure maximal inspiratory pressure 15.4, minimal expiratory pressure 8, average pressure 14.8/10.8 cm H2O. Usage is 80% % for more then 4 hours, average 7.6 hours per night. Leak is 2l/m, which is in great range. Apnea Hypopnea Index is 2.7, which is normal. Sometimes patient feels some air in upper airways. MEDICATIONS have been reviewed, please see below. During physical exam: GENERAL: A pleasant patient without any distress. VITAL SIGNS: Please see below, weight is 191 lbs. HEENT: PERRLA, EOMI.low position of soft palate, Mallapati 3 . NECK: Supple. No JVD. LUNGS: Clear to percussion and to auscultation. Good air exchange. No wheezing or rhonchi. HEART: S1, S2 regular. ABDOMEN: Soft and nontender.[] EXTREMITIES: No clubbing or cyanosis. POWERHOUSE ATTENDANT: Awake, alert, and oriented x3. No focal deficit. Impressions: 1. Obstructive sleep apnea-hypopnea syndrome. Patient demonstrated great compliance with treatment, benefiting from treatment. 2. Short mean sleep latency on MSLT 6.3 minutes on sleep onset REM., Possibly narcolepsy. 3. Hypertension. 4. History of ADHD. 5. Asthma. 6. History of atrial fibrillation, status post cardiac ablation. 7. History of diabetes mellitus. 8. History of myasthenia gravis. 9. History of glaucoma. 10. Acid reflux. I decreased maximal inspiratory pressure to 13 cm of water with a goal to prevent any feeling of air in the chest. Plan: 1. Continue using PAP equipment every night for the whole night. 2. Sleep hygiene with regular time in bed for at least 7.5-8 hours 3. PAP unit should stay lower then position of the head. 4. Advised patient to remove all remaining water from humidifier canister daily and make it dry after each usage. Refill canister with fresh distilled water before each usage. 5. Watching weight. 6. Precautions related to driving. No driving if feel any sleepiness. 7. I will maintain prescription for PAP supplies including mask, tube, filters. 8. Follow up visit in 2 months or earlier if patient has any problems. Thank you very much for allowing me to participate in the management of your patient. Mukund Washburn MD, PhD, FAASM. Diplomat of [place] [employer] Sleep Medicine, Sleep Medicine Board by [place] [employer] Medicine Dowel Pin Worker of [facility] [place] Objective - Vital Signs Vital Signs: Vital Signs Temp 97.4 F L 11/23/24 13:54 Pulse 78 11/23/24 13:54 Resp 16 11/23/24 13:54 BP 155/97 11/23/24 13:54 Pulse Ox 98 11/23/24 13:54 FiO2 Intake & Output 11/22/24 11/23/24 11/23/24 18:59 06:59 18:59 Weight 86.636 kg Home Medications: Home Medications Medication Instructions Recorded Confirmed Type DULoxetine HCL [Cymbalta] 30 mg PO BID 02/14/20 11/23/24 History Fluticasone Nasal [place] [Flonase 2 spr EA NOSTRIL DAILY 02/14/20 04/13/24 History Nasal [place]] Fluticasone Propionate 220 Mcg 1 puff INHALATION QID PRN 02/14/20 02/14/20 History [Flovent 220 Mcg Inhaler] Gabapentin [Neurontin] 300 mg PO BID 02/14/20 02/20/20 History Hydroxychloroquine Sulfate 200 mg PO BID 02/14/20 02/20/20 History [Plaquenil] Latanoprost/Pf [Latanoprost 0.005% 1 drop BOTH EYES HS 02/14/20 11/23/24 History Eye Drop] Methylphenidate HCl [Ritalin] 10 mg PO DAILY 02/14/20 02/20/20 History Metoprolol Tartrate 25 mg PO BID 02/14/20 11/23/24 History Mirabegron [Myrbetriq] 50 mg PO DAILY 02/14/20 11/23/24 History Montelukast [Singulair] 10 mg PO DAILY 02/14/20 11/23/24 History Pyridostigmine [place] [Mestinon] 60 mg PO BID 02/14/20 02/20/20 History Timolol [Betimol 0.5% Ophth Soln] 1 drop BOTH EYES HS 02/14/20 02/20/20 History hydroCHLOROthiazide 25 mg PO DAILY 02/14/20 04/13/24 History lisinopriL See Rx Instructions .ROUTE .COMPLEX 02/14/20 04/13/24 History traZODone HCL 50 mg PO HS PRN 02/14/20 02/20/20 History Aspirin [Adult Low Dose Aspirin EC] 81 mg PO DAILY 04/13/24 09/21/24 History Brimonidine Tartrate/Timolol 5 ml BOTH EYES BID 04/13/24 11/23/24 History [Combigan 0.2%-0.5% Eye Drops] Methylphenidate HCl [Ritalin] 5 mg PO DAILY 04/13/24 11/23/24 History Methylphenidate HCl [Ritalin] 20 mg PO DAILY 04/13/24 11/23/24 History DULoxetine HCL 20 mg PO DAILY 09/21/24 09/21/24 History Gabapentin [Neurontin] 100 mg PO HS 09/21/24 11/23/24 History Montelukast [Singulair] 10 mg PO DAILY 09/21/24 09/21/24 History Semaglutide [Ozempic] 1 mg SQ WEEKLY 09/21/24 11/23/24 History lisinopriL [Zestril] 2.5 mg PO DAILY 09/21/24 11/23/24 History Albuterol Inhaler [Ventolin Hfa See Rx Instructions .ROUTE 11/23/24 11/23/24 History Inhaler] .COMPLEX PRN Empagliflozin [Jardiance] 10 mg PO DAILY 11/23/24 11/23/24 History
== END ==
LOC: 3 N SLEEP 13:43
PROVIDERS: ATTEND Internal Medicine
DX: G47.33 Obstructive sleep apnea (adult) (pediatric) (principal); I10 Essential (primary) hypertension; K21.9 Gastro-esophageal reflux disease without esophagitis; J45.909 Unspecified asthma, uncomplicated; Z86.59 Personal history of other mental and behavioral disorders; Z86.79 Personal history of other diseases of the circulatory system; Z86.39 Personal history of other endocrine, nutritional and metabolic disease; Z98.61 Coronary angioplasty status; Z86.69 Personal history of other diseases of the nervous system and sense organs; Z88.0 Allergy status to penicillin; Z88.5 Allergy status to narcotic agent
CPT/HCPCS: 99212